=== PATIENT | female | born 1945 | race Caucasian/White ===

== ENCOUNTER 2018-01-23 18:31 | Inpatient (IN) | payer SELFPAY ==
[~2018-01-23] VITALS: Ht 152.4 cm; Wt 79.9 kg
[2018-01-23] MEDS ORDERED: ONDANSETRON HCL 4MG/2ML VIAL IV STA (19:10)
[2018-01-23] MEDS ORDERED: SODIUM CHLORIDE 0.9% 1,000 ML IV ONE ×3 (19:10→22:52)
[2018-01-23] MEDS ORDERED: ACETAMINOPHEN 325MG TABLET PO STA (19:10)
[2018-01-23 20:24] LABS: BASOPHILS % 0.4 % (0.0-2.0); EOSINOPHILS % 0.7 % (0.0-5.0); HEMATOCRIT. 40.4 % (36.0-48.0); HEMOGLOBIN. 14.2 g/dL (12.0-16.0); LYMPHOCYTES % 10.8 % (20.0-50.0); MEAN CORPUSCULAR HEMOGLOBIN 32.3 pg (28.0-32.0); MEAN CORPUSCULAR VOLUME 91.8 fL (81.0-99.0); MEAN PLATELET VOLUME 10.3 fl (7.4-10.4); MONOCYTES % 1.5 % (2.0-8.0); NEUTROPHILS % 86.6 % (40.0-76.0); PLATELET 144 x1000/uL (130-400); RED BLOOD CELL COUNT 4.41 mill/uL (4.2-5.4); RED CELL DISTRIBUTION WIDTH 15.4 % (11.6-14.6)
[2018-01-23 20:26] LABS: CHLORIDE 102 mEq/L (98-107)
[2018-01-23 20:30] LABS: CLARITY URINE CLOUDY (CLEAR); COLOR URINE YELLOW (YELLOW); KETONES URINE TRACE (NEGATIVE); LEUKOCYTE ESTERASE URINE 2+ (NEGATIVE); NITRITE URINE POSITIVE (NEGATIVE); OCCULT BLOOD URINE 1+ (NEGATIVE); PROTEIN URINE 2+ (NEGATIVE); SPECIFIC GRAVITY URINE 1.017 (1.005-1.030); UROBILINOGEN URINE 0.2 E.U./dL (0.2-1.0)
[2018-01-23 20:33] LABS: INR 3.4; PROTHROMBIN TIME 33.5 sec (9.1-11.1)
[2018-01-23] MEDS ORDERED: CEFTRIAXONE 1 G PREMIX 50 ML IV ONE (22:15)
[2018-01-23] MEDS ORDERED: ACETAMINOPHEN 500MG TABLET ONE (23:53)
[2018-01-24] VITALS (43 sets, daily range): BP systolic 66–114; BP diastolic 39–64
[2018-01-24] MEDS ORDERED: ENOXAPARIN 80MG/0.8ML SYR SUBCUT ONE (01:45)
[2018-01-24] MEDS ORDERED: ASPIRIN 325MG EC TABLET PO ONE (02:30)
[2018-01-24] MEDS ORDERED: ONDANSETRON HCL 4MG/2ML VIAL IV PRN (02:45)
[2018-01-24] MEDS ORDERED: HYDROCODONE/ACETAMINOPHEN 5/325MG TABLET PO PRN (02:45)
[2018-01-24] MEDS ORDERED: CLONIDINE 0.1MG TABLET PO PRN (02:45)
[2018-01-24] MEDS ORDERED: MORPHINE SULFATE 4 MG/ML CPJ (NOT FOR IM USE) IV PRN (02:45)
[2018-01-24] MEDS ORDERED: DOCUSATE SODIUM 100MG CAPSULE PO PRN (02:45)
[2018-01-24] MEDS ORDERED: WARF-53 PO (03:17)
[2018-01-24] MEDS ORDERED: METF850T2 MT (03:17)
[2018-01-24] MEDS ORDERED: CAND16TA12 MT (03:17)
[2018-01-24] MEDS ORDERED: DEXTROSE 50% WATER 50ML SYRINGE IV PRN (07:00)
[2018-01-24] MEDS: SODIUM CHLORIDE 0.45% 1,000 ML IV SCH ×3 (07:02→20:00)
[2018-01-24] MEDS: BLOOD SUGAR DIAGNOSTIC STRIP TEST SCH ×4 (07:50→21:00)
[2018-01-24] MEDS: INSULIN LISPRO 100 UNITS/ML SUBCUT SCH ×4 (08:20→21:14)
[2018-01-24] MEDS ORDERED: METOPROLOL TARTRATE 25MG TABLET PO SCH (09:00)
[2018-01-24] MEDS ORDERED: ALBUMIN HUMAN 12.5G/250ML (5%) IV NR (09:11)
[2018-01-24] MEDS ORDERED: NOREPINEPHRINE 4 MG in DEXT 5% WATER 246 ML IV PRN (15:30)
[2018-01-24] MEDS ORDERED: WARFARIN SODIUM 5MG TABLET PO SCH (18:00)
[2018-01-24] MEDS: ACETAMINOPHEN 325MG TABLET PO PRN (22:48)
[2018-01-25] VITALS (83 sets, daily range): BP systolic 60–128; BP diastolic 24–72
[2018-01-25 04:41] LABS: BASOPHILS % 0.8 % (0.0-2.0); EOSINOPHILS % 1.2 % (0.0-5.0); HEMATOCRIT. 33.9 % (36.0-48.0); HEMOGLOBIN. 11.8 g/dL (12.0-16.0); LYMPHOCYTES % 22.6 % (20.0-50.0); MEAN CORPUSCULAR HEMOGLOBIN 32.4 pg (28.0-32.0); MEAN CORPUSCULAR VOLUME 92.9 fL (81.0-99.0); MEAN PLATELET VOLUME 9.7 fl (7.4-10.4); MONOCYTES % 7.4 % (2.0-8.0); PLATELET 136 x1000/uL (130-400); RED BLOOD CELL COUNT 3.65 mill/uL (4.2-5.4); RED CELL DISTRIBUTION WIDTH 15.1 % (11.6-14.6)
[2018-01-25 04:43] LABS: CHLORIDE 111 mEq/L (98-107)
[2018-01-25 04:46] LABS: INR 3.8; PROTHROMBIN TIME 37.3 sec (9.1-11.1)
[2018-01-25 04:52] LABS: LDL CHOLESTEROL 31 mg/dL (5-100)
[2018-01-25 04:54] LABS: HDL CHOLESTEROL 25 mg/dL (40-59)
[2018-01-25] MEDS: SODIUM CHLORIDE 0.45% 1,000 ML IV SCH ×2 (05:54→23:42)
[2018-01-25] MEDS: BLOOD SUGAR DIAGNOSTIC STRIP TEST SCH ×4 (08:00→21:13)
[2018-01-25] MEDS: INSULIN LISPRO 100 UNITS/ML SUBCUT SCH ×4 (08:20→21:12)
[2018-01-25] MEDS ORDERED: LEVOFLOXACIN 500MG PREMIX 100 ML IV SCH (12:00)
[2018-01-25] MEDS: ACETAMINOPHEN 325MG TABLET PO PRN ×2 (12:01→20:17)
[2018-01-26] VITALS (11 sets, daily range): BP systolic 91–122; BP diastolic 53–75
[2018-01-26] MEDS: BLOOD SUGAR DIAGNOSTIC STRIP TEST SCH ×4 (07:57→21:00)
[2018-01-26] MEDS: INSULIN LISPRO 100 UNITS/ML SUBCUT SCH ×4 (07:58→21:00)
[2018-01-26 09:42] LABS: PROTHROMBIN TIME 47.8 sec (9.1-11.1)
[2018-01-26] MEDS: SODIUM CHLORIDE 0.45% 1,000 ML IV SCH ×2 (09:44→21:59)
[2018-01-26 10:17] LABS: INR 4.9
[2018-01-26] MEDS ORDERED: LEVOFLOXACIN 250MG PREMIX 50 ML IV SCH (12:00)
[2018-01-26] MEDS ORDERED: NITROFURANTOIN 100MG M/M CAPSULE PO NR (15:30)
[2018-01-26] MEDS ORDERED: MEROPENEM 500 MG in SODIUM CHLORIDE 0.9% 50 ML IV SCH (16:00)
[2018-01-26] MEDS: MEROPENEM 1000MG in NORMAL SALINE 100ML IV SCH (16:21)
[2018-01-26 19:34] LABS: BASOPHILS % 0.9 % (0.0-2.0); EOSINOPHILS % 1.6 % (0.0-5.0); HEMATOCRIT. 35.6 % (36.0-48.0); HEMOGLOBIN. 12.5 g/dL (12.0-16.0); LYMPHOCYTES % 32.2 % (20.0-50.0); MEAN CORPUSCULAR HEMOGLOBIN 32.1 pg (28.0-32.0); MEAN CORPUSCULAR VOLUME 91.9 fL (81.0-99.0); MONOCYTES % 9.6 % (2.0-8.0); NEUTROPHILS % 55.7 % (40.0-76.0); PLATELET 141 x1000/uL (130-400); RED BLOOD CELL COUNT 3.88 mill/uL (4.2-5.4); RED CELL DISTRIBUTION WIDTH 14.8 % (11.6-14.6)
[2018-01-26 19:50] LABS: CHLORIDE 108 mEq/L (98-107)
[2018-01-27] VITALS (10 sets, daily range): BP systolic 102–131; BP diastolic 53–71
[2018-01-27] MEDS: SODIUM CHLORIDE 0.45% 1,000 ML IV SCH (05:22)
[2018-01-27] MEDS: MEROPENEM 1000MG in NORMAL SALINE 100ML IV SCH (05:23)
[2018-01-27 07:06] LABS: INR 3.7
[2018-01-27] MEDS: INSULIN LISPRO 100 UNITS/ML SUBCUT SCH ×2 (08:00→13:00)
[2018-01-27] MEDS: BLOOD SUGAR DIAGNOSTIC STRIP TEST SCH ×2 (08:20→12:30)
[2018-01-27] MEDS ORDERED: NITROFURANTOIN 100MG M/M CAPSULE PO SCH (09:00)
[2018-01-27] MEDS ORDERED: WARF2TAB57 MT (13:59)
[2018-01-27] MEDS ORDERED: NITR100C PO (13:59)
== END 2018-01-27 17:20 | disposition home or self-care (01) | DRG 720 ==
LOC: ER 18:31 → CVICU 23:53 → EDBEDREQ 23:54 → EDBEDREQTM 23:54 → EDBEDREQSVC 23:54 → ENRESERV 01-24 00:13 → 5EST 01-25 22:37
PROVIDERS: ADMIT Hospitalist; ATTEND Hospitalist
DX: A41.51 Sepsis due to Escherichia coli [E. coli] (principal); I21.4 Non-ST elevation (NSTEMI) myocardial infarction; G93.41 Metabolic encephalopathy; I95.9 Hypotension, unspecified; D68.9 Coagulation defect, unspecified; I11.0 Hypertensive heart disease with heart failure; I50.9 Heart failure, unspecified; E11.9 Type 2 diabetes mellitus without complications; E86.0 Dehydration; E66.9 Obesity, unspecified; I25.10 Atherosclerotic heart disease of native coronary artery without angina pectoris; I35.0 Nonrheumatic aortic (valve) stenosis; N39.0 Urinary tract infection, site not specified; T45.515A Adverse effect of anticoagulants, initial encounter; Y92.89 Other specified places as the place of occurrence of the external cause; Z79.01 Long term (current) use of anticoagulants; Z95.2 Presence of prosthetic heart valve; Z88.6 Allergy status to analgesic agent; Z68.34 Body mass index [BMI] 34.0-34.9, adult
CPT/HCPCS: 36415; 71045; 80053; 80061; 81003; 82575; 82962; 83605; 83735; 84484; 85025; 85610; 87040; 87077; 87086; 87186; 93005; 93306; 93970; 96361; 96365; 96375; 99291; J0696; J1650; J1815; J1956; J2185; J2405; J3490; J7030; J7040; J7060; P9041

== ENCOUNTER 2019-10-31 01:52 | Emergency (ER) | payer MEDICAID ==
[~2019-10-31] VITALS: Ht 162.6 cm; Wt 72.0 kg
[~2019-10-31 01:52] MED LIST: METF-415 MT; NITR100C PO; WARF2TAB57 MT
[2019-10-31 02:10] VITALS: BP 88/41
[2019-10-31] MEDS ORDERED: SODIUM CHLORIDE 0.9% 1,000 ML IV ONE (02:26)
[2019-10-31] MEDS ORDERED: VISCOUS LIDOCAINE 2% 15 ML UDC MM STA (02:26)
[2019-10-31] MEDS ORDERED: GLUCAGON,HUMAN RECOMBINANT 1MG/VIAL IM ONE (02:30)
[2019-10-31] MEDS ORDERED: ASPIRIN 81MG TABLET PO ONE (02:30)
[2019-10-31] MEDS ORDERED: CALCIUM GLUCONATE 100MG/ML 10ML VIAL IV ONE (02:30)
[2019-10-31] MEDS ORDERED: FENTANYL CITRATE/PF 50MCG/ML 2ML VIAL IV ONE (02:30)
[2019-10-31] MEDS ORDERED: MAGNESIUM/ALUMINUM HYDROXIDE/SIMETHICONE 30ML UDC PO ONE (02:30)
[2019-10-31] MEDS ORDERED: CALCIUM GLUCONATE 1,000 MG in DEXT 5% WATER 100 ML IV SCH (03:00)
[2019-10-31] MEDS ORDERED: NALOXONE HCL 1 MG/ML 2ML VIAL ONE (03:00)
[2019-10-31] MEDS ORDERED: DEXTROSE 50% WATER 50ML VIAL IV ONE (03:01)
[2019-10-31] MEDS ORDERED: SODIUM BICARBONATE 8.4% MEQ/ML 50ML VIAL IV ONE (03:01)
[2019-10-31] MEDS ORDERED: EPINEPHRINE 0.1MG/ML (1:10,000) 10ML SYR ONE ×2 (03:01→03:08)
[2019-10-31] MEDS ORDERED: NALOXONE HCL 0.4 MG/ML 1ML VIAL ONE (03:01)
[2019-10-31] MEDS ORDERED: AMIODARONE HCL 50MG/ML 3ML VIAL IV ONE (03:01)
[2019-10-31] MEDS ORDERED: ATROPINE SULFATE 1MG/10ML SYR ONE (03:01)
[2019-10-31] MEDS ORDERED: CALCIUM CHLORIDE 1GM/10ML SYR IV ONE (03:01)
[2019-10-31 03:10] LABS: HEMATOCRIT. 39.8 % (36.0-48.0); HEMOGLOBIN. 13.3 g/dL (12.0-16.0); MEAN CORPUSCULAR HEMOGLOBIN 32.3 pg (28.0-32.0); MEAN CORPUSCULAR VOLUME 96.9 fL (81.0-99.0); MEAN PLATELET VOLUME 9.7 fl (7.4-10.4); PLATELET 185 x1000/uL (130-400); RED BLOOD CELL COUNT 4.11 mill/uL (4.2-5.4); RED CELL DISTRIBUTION WIDTH 15.2 % (11.6-14.6)
[2019-10-31 03:11] LABS: CHLORIDE 111 mEq/L (98-107)
[2019-10-31 03:16] LABS: ETHANOL BLOOD < 10 mg/dL
[2019-10-31 03:17] LABS: INR 3.1; PARTIAL THROMBOPLASTIN TIME 37.8 sec (23.4-31.0); PROTHROMBIN TIME 33.1 sec (9.6-11.0)
[2019-10-31 06:26] LABS: PLATELET ESTIMATE NORMAL
== END 2019-10-31 03:18 | disposition expired ==
LOC: ER 01:52
DX: J96.90 Respiratory failure, unspecified, unspecified whether with hypoxia or hypercapnia (principal); Z20.828 Contact with and (suspected) exposure to other viral communicable diseases
CPT/HCPCS: 31500; 36415; 71045; 80053; 80320; 83605; 83880; 84484; 85025; 85610; 85730; 92950; 93005; 99291; J0282; J0461; J0610; J1610; J2310; J3010; J3490; J7030; J7060; Z7610; G0480